=== PATIENT | male | born 1960 | race Caucasian/White ===

== ENCOUNTER 2025-08-06 12:34 | Emergency (ER) | payer BC, SELFPAY ==
[2025-08-06 12:44] VITALS: BP 119/73; PULSE 88; RESP 20; TEMP 36.6; O2SAT 97
--- NOTE | 2025-08-06 13:15 | ED.SKABFB ---
HPI - Skin/Abscess/Foreign Bdy General Chief complaint: Skin/Abscess/Foreign Body Stated complaint: infection in rotator cuff surgery area Time Seen by Provider: 08/06/25 12:50 Source: patient and RN notes reviewed Mode of arrival: ambulatory Limitations: no limitations History of Present Illness HPI narrative: 64-year-old male presents [facility] rotator cuff surgery pain. Patient said he had rotator cuff surgery on the 28 of July. Patient is concerned incision sites are infected. Patient also reports uncontrollable pain. Patient a prescription of ketorolac and said it helped well however he ran out of that prescription. Patient has been taking the [place] is a he was prescribed and says it does not help much with the pain but he uses that night to help him sleep. Patient denies any fevers, worsening redness, swelling, drainage, nausea, vomiting, body aches, chills, or any other symptoms. Related Data Home Medications ?Medication ?Instructions ?Recorded ?Confirmed ?Last Taken ?Type allopurinol 300 mg tablet mg 08/06/25 Unknown History amlodipine 10 mg tablet mg 08/06/25 Unknown History atorvastatin 40 mg tablet mg 08/06/25 Unknown History hydrocodone 7.5 mg-acetaminophen tablet 08/06/25 Unknown History 325 mg tablet losartan 100 mg tablet mg 08/06/25 Unknown History Allergies Allergy/AdvReac Type Severity Reaction Status Date / Time No Known Drug Allergies Allergy Verified 02/25/12 13:12 Review of Systems Review of Systems: CONSTITUTIONAL: Denies fever, chills, or sweats. EYES: Denies visual changes, redness, or discharge. ENT: Denies rhinorrhea, congestion, sore throat, or otalgia. CARDIOVASCULAR: Denies chest pain, palpitations, or edema. RESPIRATORY: Denies cough or dyspnea. GASTROINTESTINAL: Denies abdominal pain, nausea, vomiting, or diarrhea. GENITOURINARY: Denies dysuria or hematuria. SKIN: Denies rash or itching. Positive for surgical incisions. MUSCULOSKELETAL: Denies back pain, joint pain, or myalgia. Positive for right shoulder pain. NEUROLOGIC: Denies headache, numbness, or weakness. PSYCHIATRIC: Denies anxiety or depression. All other systems reviewed are negative, except as documented in HPI. PMFSH Comments At the time of my signature, I reviewed and agree with the nursing past medical, surgical, social, and family history. There is no relevant family history pertinent to the patient complaint. Exam Narrative: GENERAL: This is a well-nourished, well-developed adult, in no apparent distress. They are non ill-appearing, nontoxic appearing. Patient in a right shoulder immobilizer. HEAD: normocephalic, atraumatic. EYES: Sclera clear/white. Conjunctiva normal. Vision is grossly intact. Extraocular movements intact EARS: External ears normal, Hearing grossly intact. NOSE: External nose normal THROAT: Mucous membranes moist, NECK: Neck supple, CARDIOVASCULAR: Regular rate and rhythm RESPIRATORY: Respiratory rate normal, respiratory effort nonlabored, no respiratory distress SKIN: Right shoulder: 3 incision sites present to right shoulder, sutures intact. No surrounding cellulitis, no exudate, incisions are nontender, no area of fluctuance or induration. Old bruising present throughout right shoulder. Neurovascular status intact. NEURO: awake, alert, and oriented to person, place and time. There were no obvious focal neurologic abnormalities. EXTREMITIES: No joint tenderness, effusion, or edema noted. BACK: Nontender without deformity. No CVA tenderness. Course Course Emergency Course: Portions of this record may have been created with voice recognition software Level of Care: Express Care Visit Vital Signs Vital signs: Vital Signs Temperature 97.8 F 08/06/25 12:44 Pulse Rate 88 08/06/25 12:44 Respiratory Rate 20 08/06/25 12:44 Blood Pressure 119/73 08/06/25 12:44 Pulse Oximetry 97 08/06/25 12:44 Oxygen Delivery Room Air 08/06/25 12:44 Temperature 97.8 F 08/06/25 12:44 Pulse Rate 88 08/06/25 12:44 Respiratory Rate 20 08/06/25 12:44 Blood Pressure 119/73 08/06/25 12:44 Pulse Oximetry 97 08/06/25 12:44 Oxygen Delivery Room Air 08/06/25 12:44 Reviewed MDM - Skin/Abscess/Foreign Bdy MDM Narrative Medical decision making narrative: No evidence of infection to incision sites. Patient likely is having pain from his surgery. Patient tolerated ketorolac well. Patient has a follow-up coming up in for days with his surgeon. Will prescribe a short course ketorolac until he sees his surgeon on Friday. Discussed physical exam findings. Advised supportive measures and signs/symptoms to go to the ER. Pt is appropriate for outpt treatment and f/u. Differential Diagnosis Differential diagnosis: Likely cellulitis and other (Wound check, surgical pain, postop infection) Critical Care Time Critical Care Time Critical Care Time: No Discharge Plan Discharge Clinical Impression: Encounter for post surgical wound check Patient Disposition: Home Condition: Stable Instructions: Rotator Cuff Tear Repair (DC) Additional Instructions: The wounds from the rotator cuff surgery appear to be healing well. There is no signs of infection. Please take the ketorolac as directed. Do not take any other NSAIDs such as ibuprofen, Naprosyn, Aleve, Advil, etc. with ketorolac. You may alternate with Tylenol, follow instructions on the bottle. Follow-up with the orthopedic surgery and next week as discussed. If you developed worsening redness, swelling, pain, green/yellow drainage, fevers, or any serious concerns please go to the ER immediately. Patient Language: Armenian Prescriptions: New ketorolac 10 mg tablet 10 mg PO Q6H PRN (Reason: pain) Qty: 20 0RF Rx Instructions: maximum total duration of 5 days from all oral, intranasal, or parenteral formulations No Action atorvastatin 40 mg tablet amlodipine 10 mg tablet hydrocodone-acetaminophen 7.5-325 mg tablet allopurinol 300 mg tablet losartan 100 mg tablet Follow-up/Referrals: PHYSICIAN NOT ON STAFF,NONSTAFF [Primary Care Provider] Time of Disposition: 13:05
== END 2025-08-06 13:12 | disposition home or self-care (01) ==
DX: Z48.01 Encounter for change or removal of surgical wound dressing (principal); G89.18 Other acute postprocedural pain
CPT/HCPCS: 99211; 99213; G0463